=== PATIENT | male | born 1970 | race Two or more races ===

== ENCOUNTER 2017-08-23 09:24 | Emergency (ER) | payer OTHER ==
[~2017-08-23] VITALS: Ht 157.5 cm; Wt 76.2 kg
[~2017-08-23 09:24] MED LIST: DIOVAN HCT 161 UDTAB; LIPITOR40 MG
[2017-08-23] MEDS ORDERED: TUSSI-PRES LIQ118 ML PO (12:53)
== END 2017-08-23 14:28 | disposition home or self-care (01) ==
LOC: ER 09:24
DX: J11.1 Influenza due to unidentified influenza virus with other respiratory manifestations (principal); B34.9 Viral infection, unspecified